=== PATIENT | male | born 1970 | race Caucasian/White ===

== ENCOUNTER 2019-12-20 04:36 | Inpatient (IN) | payer BC ==
--- NOTE | 2019-12-11 15:20 | HP ---
DATE OF OPERATION: 12/20/2019 BRIEF HISTORY: This is a 49-year-old gentleman who has a history of having a left inguinal hernia. He was told this by his primary care physician on his routine physical examination in June. At that time the patient has had no symptoms and was fine. The past 2 weeks the patient developed discomfort in the left groin and he noticed a large lump in the left groin as well. The patient states the lump comes and goes and usually comes out when he stands up. He has had no nausea and no vomiting or change in bowel habits. PAST MEDICAL HISTORY: No coronary disease, hypertension, or diabetes. PAST SURGICAL HISTORY: Patient has had an emergent laparoscopic cholecystectomy in 2010. ALLERGIES: ERYTHROMYCIN. MEDICATIONS: 1. Buspirone. 2. Acetaminophen. 3. Ibuprofen. 4. Naprosyn. 5. Aspirin. SOCIAL HISTORY: Does not smoke, does not drink, and no history of drug use. PHYSICAL EXAMINATION: Abdomen is soft, nontender, and nondistended. He has some laxity in the right groin. The right scrotum and testicle is within normal limits. On the left side the patient is noted to have a large left inguinal hernia with encroachment into the left proximal scrotum. The left testicle and scrotum is within normal limits as well. The hernia is partially reducible in the supine position. IMPRESSION/PLAN: Chronically incarcerated left inguinal scrotal hernia. This is a 49-year-old gentleman with a very large left inguinal hernia. At this point he is symptomatic and; therefore, I have recommended we repair the hernia. I have discussed the various surgical approaches with this gentleman with and without mesh. The patient will be scheduled for an attempt at a laparoscopic left inguinal herniorrhaphy with mesh and at the time of laparoscopy the right side will be examined and if an occult hernia is noted, it will be repaired at the same setting. If no hernia is seen, a piece of mesh will be left in the direct inguinal space for reinforcement. Due to the size of this hernia, the patient understands very clearly that he may develop a postoperative seroma which may or may not resolve. He understands this and still wants to proceed. The indications, alternatives, and complications of the procedure were discussed and questions answered. We will plan to obtain written consent the day of surgery. SAHRA TREVINO M.D. [id number] cc: Dr. Payam Darby III. [phone]
[2019-12-15 16:55] VITALS: BMI 20.7
[2019-12-20] MEDS ORDERED: TAMSULOSIN HCL 0.4 MG CAP ONE (07:27)
[2019-12-20] MEDS ORDERED: DEXAMETHASONE SOD PHOSPHATE/PF 10 MG/ML SDV ONE (08:36)
[2019-12-20] MEDS ORDERED: MIDAZOLAM HCL 2 MG/2 ML SINGLE DOSE VIAL ONE ×2 (08:38)
[2019-12-20] MEDS ORDERED: ROCURONIUM BROMIDE 100 MG/10 ML VIAL ONE (09:11)
[2019-12-20] MEDS ORDERED: PROPOFOL 20 ML ONE (09:11)
[2019-12-20] MEDS ORDERED: LIDOCAINE HCL/PF 2% SDV 5ML VIAL ONE (09:11)
[2019-12-20] MEDS ORDERED: KETOROLAC TROMETHAMINE 30 MG/1 ML VIAL ONE (09:16)
[2019-12-20] MEDS ORDERED: DEXAMETHASONE SOD PHOSPHATE 4 MG/1 ML VIAL ONE (10:06)
[2019-12-20] MEDS ORDERED: ceFAZolin SODIUM 1 GM VIAL ONE (10:06)
[2019-12-20] MEDS ORDERED: NEOSTIGMINE METHYLSULFATE 0.5 MG/ML - 10 ML MDV ONE (10:41)
[2019-12-20] MEDS ORDERED: GLYCOPYRROLATE 0.2 MG/1 ML VIAL ONE (10:41)
[2019-12-20] MEDS ORDERED: oxyCODONE HCL 5 MG TABLET PO PRN (11:31)
[2019-12-20] MEDS ORDERED: ONDANSETRON 4 MG/2 ML VIAL IVPUSH PRN (11:31)
[2019-12-20] MEDS ORDERED: ACETAMINOPHEN INJECTION 100 ML IVPB ONE (12:19)
[2019-12-20] MEDS ORDERED: ACETAMINOPHEN 1000 MG/100 ML VIAL (NON FORMULARY) IVPB ONE (12:30)
--- NOTE | 2019-12-20 13:00 | OP ---
DATE OF OPERATION: 12/20/2019 PREOPERATIVE DIAGNOSIS: Chronically incarcerated left inguinal hernia. POSTOPERATIVE DIAGNOSIS: Chronically incarcerated left inguinal hernia, chronically incarcerated left pantaloon inguinal hernia, right indirect inguinal hernia. PROCEDURE: Laparoscopic repair of incarcerated left inguinal hernia with mesh, laparoscopic repair of right inguinal hernia with mesh. SURGEON: Asad Feliciano MD TAPEMAN: Cedric Hansen MD ANESTHESIA: VITO Aleman (general). ESTIMATED BLOOD LOSS: Minimal. SPECIMEN: None. INDICATION FOR PROCEDURE: This is a 49-year-old gentleman becoming more symptomatic from his known chronically incarcerated left inguinal hernia. He now wishes to have this repaired. DESCRIPTION OF PROCEDURE: Patient identified and appropriately positioned on the operating room table. After placement of general anesthesia, the abdomen was prepped and draped in the usual sterile fashion with ChloraPrep. An infraumbilical incision was made, deepened through the subcutaneous tissues. The fascia of the rectus muscle on the right identified, divided sharply and the muscle split. Under direct vision a dissector balloon followed by a structural balloon placed. Also under direct vision a suprapubic 11-mm port placed. The following structures on the right side identified: Pubic tubercle, Jelani's ligament, inferior epigastric vessels, spermatic cord and lateral abdominal wall. During this dissection he had no direct component. He had an indirect inguinal hernia sac identified, reduced back into the preperitoneal space with blunt dissection. A 5.5 x 6 piece of Versatex mesh was jay-holed, placed through the suprapubic port site. The mesh was wrapped around the cord structures laterally to reconstruct the internal ring. Laterally the mesh was anchored to the anterior abdominal wall and lateral abdominal wall. Medially the mesh was anchored to the anterior abdominal wall, pubic tubercle and Jelani's ligament. Upon completion of the right side, similar structures on the left side identified. On the left side he had a chronically incarcerated direct inguinal hernia containing fat. He also had a small indirect inguinal hernia. The fat was reduced back into the preperitoneal space. The indirect hernia reduced back into the preperitoneal space. Another 5.5 x 6 piece of Versatex mesh was jay-holed, placed through the suprapubic port site. The mesh wrapped around the cord structures laterally to reconstruct the internal ring. Laterally the mesh was anchored to the anterior abdominal wall and lateral abdominal wall. Medially the mesh well overlapped in the midline, anchored to the anterior abdominal wall, pubic tubercle and Jelani's ligament. All anterior abdominal wall and lateral abdominal wall anchors placed under direct counter palpation. The mesh used was Versatex and the anchoring system was AbsorbaTack. The preperitoneal space desufflated under direct vision. The operative field noted to be hemostatic. The fascia at the infraumbilical and supraumbilical port site reapproximated with 3-0 Vicryl suture. All skin closed with 4-0 subcuticular Biosyn followed by Dermabond. At the conclusion of this case, sponge counts were correct. ATTESTATION: Brief op note handwritten on the preprinted form. [facility] queried prior to giving narcotics. Felipa CARRASQUILLO [id number] cc: Payam Vega III, DO
[2019-12-20] MEDS ORDERED: METOPROLOL TARTRATE 5 MG/5 ML VIAL ONE ×2 (13:32)
--- NOTE | 2019-12-20 15:17 | EKG ---
Test Reason : Blood Pressure : / mmHG Vent. Rate : 136 BPM Atrial Rate : 136 BPM P-R Int : 138 ms QRS Dur : 094 ms QT Int : 328 ms P-R-T Axes : 000 085 -34 degrees QTc Int : 493 ms ATRIAL TACHYCARDIA NONSPECIFIC ST ABNORMALITY ABNORMAL QRS-T ANGLE, CONSIDER PRIMARY T WAVE ABNORMALITY ABNORMAL ECG NO PREVIOUS ECGS AVAILABLE Confirmed by Claudio Viveros ([id number]) on 12/20/2019 3:16:30 PM Referred By: Confirmed By:Claudio Viveros
--- NOTE | 2019-12-20 15:36 | CON.CARD ---
Consult Consult Specialty:: Cardiology - History of Present Illness Chief Complaint: Tachycardia History of Present Illness: 49 M with ho anxiety on Wellbutrin and intermittent palpitations underwent elective laproscopic inguinal hernia repair under general anesthesia. Procedure was uncomplicated but noted to have sustained narrow complex tachycardia to 140s in PACU. He has palpitations but no dyspnea or chest pain. Viatals in PACU show O2 sat on RA 100%, BP 110/70. surgical site Pain is controlled. He has received 2 L fluids. There is no history of CHF or known prior ho CAD, or arrhythmias. An echocardiogram 2013 showed bileaflet prolapse and mild MR with normal biventric ular function. - History Source History Provided By: Patient - Smoking History Smoking history: Never smoked Have you smoked in the past 12 months: No Home Medications - Allergies Allergies/Adverse Reactions: Allergies Allergy/AdvReac Type Severity Reaction Status Date / Time erythromycin base Allergy Mild Nausea Verified 12/20/19 07:18 - Home Medications Home Medications: Ambulatory Orders Bupropion HCl [Wellbutrin Sr] 100 mg PO DAILY 12/15/19 Bupropion HCl [Wellbutrin Sr] 150 mg PO BID 12/15/19 Oxycodone HCl/Acetaminophen [Percocet 5-325 mg Tablet] 1 tab PO Q4H PRN #42 tablet MDD 6 12/20/19 Review of Systems - Review of Systems Constitutional: reports: No Symptoms Eyes: reports: No Symptoms HENT: reports: No Symptoms Neck: reports: No Symptoms Cardiovascular: reports: Palpitations. denies: Chest Pain, Shortness of Breath Respiratory: reports: No Symptoms Gastrointestinal: reports: No Symptoms Genitourinary: reports: No Symptoms Vital Signs: Vital Signs Temperature 98.0 F 12/20/19 11:01 Pulse Rate 131 H 12/20/19 11:01 Respiratory Rate 14 12/20/19 11:01 Blood Pressure 114/79 12/20/19 11:01 O2 Sat by Pulse Oximetry (%) 100 12/20/19 11:01 Constitutional: Yes: Well Nourished, No Distress Eyes: Yes: Conjunctiva Clear, EOM Intact HENT: Yes: Atraumatic, Normocephalic Neck: Yes: Supple, Trachea Midline Respiratory: Yes: Regular, CTA Bilaterally Gastrointestinal: Yes: Normal Bowel Sounds Renal/: Yes: WNL Cardiovascular: Yes: Regular Rate and Rhythm JVD: No Carotid Bruit: No PMI: Non-Displaced Heart Sounds: Yes: S1, S2 Murmur: No: Systolic Murmur, Diastolic Murmur Edema: No - Other Data Likely Atrial tachycardia No ST T changes. Problem List - Problems (1) Atrial tachycardia Code(s): I47.1 - SUPRAVENTRICULAR TACHYCARDIA Assessment/Plan 49 M history of MV prolapse and anxiety sp elective Laproscopic Hernia op with post op tachycardia. ECG with possible Atrial tachycardia (likely originating in [place]). Patient is mildly symptomatic with ho normal LV function. Arrhythmia possibly represents increased automaticity post OR/anesthesia. He has a ho palpitations and possibly has paroxysmal AT which is newly diagnosed. Echo Metoprolol 25mg PO BID. Check CXR/CBC/ K, Mg, phos. Correct electrolytes if needed. Check TFT Telemetry montior. If AT persists in the next 12-18 hours will advise electrophysiologic evaluation and transfer to tertiary hospital for cardioversion.
[2019-12-20] MEDS: LACTATED RINGERS SOLUTION 1,000 ML IV SCH (16:00)
--- NOTE | 2019-12-20 16:43 | ECHO ---
Version: 1 Name: JODI BERNAL Exam: Adult Echocardiogram Study Date: 12/20/2019, 4:04 PM Age: 49 Years MMode/2D Measurements & Calculations IVSd: 0.99 cm LVIDs: 2.9 cm LVIDd: 4.3 cm LVPWd: 0.87 cm ACS: 2.01 cm Ao root diam: 3.3 cm LVOT diam: 1.96 cm LA dimension: 3.1 cm Doppler Measurements & Calculations MV E max michael: 102.7 cm/sec Med E/e': 12.8 MV A max michael: 58.7 cm/sec Med Peak E' Michael: 8.0 cm/sec MV E/A: 1.75 Lat E/e': 16.5 Lat Peak E' Michael: 6.2 cm/sec Ao max P.8 mmHg CARLEEN(I,D): 2.7 cm Ao mean P.23 mmHg LV V1 mean: 39.8 cm/sec Ao V2 max: 84.2 cm/sec LV V1 mean P.72 mmHg Procedure A complete two-dimensional transthoracic echocardiogram was performed (2D, M-mode, Doppler and color flow Doppler). The patient was in a tachycardic rhythm during the exam. Left Ventricle The left ventricular size, thickness and function are normal. Right Ventricle The right ventricle is normal in size and function. Atria Normal left and right atrial size and function. Mitral Valve Prolapse of the anterior mitral leaflet. There is mild mitral regurgitation. Tricuspid Valve The tricuspid valve is normal in structure and function. Aortic Valve The aortic valve is normal in structure and function. The aortic valve is trileaflet. No hemodynamic ally significant valvular aortic stenosis. No aortic regurgitation is present. Pulmonic Valve The pulmonic valve is not well visualized. Great Vessels The aortic root is normal size. Pericardium/Pleura There is no pericardial effusion. Summary Statements The left ventricular size, thickness and function are normal The right ventricle is normal in size and function. Normal left and right atrial size and function. Prolapse of the anterior mitral leaflet. There is mild mitral regurgitation. Claudio Viveros 12/20/2019, 4:43 PM Ordering Physician: Claudio Viveros Referring Physician: CLAUDIO VIVEROS Performed By: Chasity Ray
[2019-12-20] MEDS ORDERED: buPROPion HCL 75 MG TABLET PO ONE (21:15)
[2019-12-20] MEDS: METOPROLOL TARTRATE 25 MG TABLET (FP) PO SCH (21:22)
[2019-12-21 07:41] VITALS: BP 102/59; PULSE 137; TEMP 97.9
[2019-12-21] MEDS: METOPROLOL TARTRATE 25 MG TABLET (FP) PO SCH (09:11)
--- NOTE | 2019-12-21 10:06 | DS ---
DATE OF ADMISSION: 12/20/2019 DATE OF DISCHARGE: 12/21/2019 HOSPITAL COURSE: This is a 49-year-old male who presented for a laparoscopic inguinal hernia repair. He had an uneventful bilateral inguinal hernia repair done by Dr. Asad Feliciano. Please reference the operative report. Postoperatively, he developed an atrial tachycardia. He was evaluated by the Cardiology Service, Dr. Claudio Viveros. He had an echocardiogram, and a decision was made that he needed to be transferred to [facility] for an electrophysiology cardiology evaluation and likely cardioversion. At the time of his transfer, he is stable. He has no pain. His blood pressure is fine. He is tolerating diet. Ambulating and voiding. He will be transferred to [facility] under Dr. Viveros's care. They will delay the procedure until December 21, which will be 48 hours after surgery, at which point he can start safely his anticoagulation. It is felt that there is a minimal risk to allowing him to wait an additional day with the tachycardia as he is hemodynamically stable. Obviously, if his condition changes, anticoagulation could be started sooner. He will follow with Dr. 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 DO MARCO HERNANDEZ/[id number]
--- NOTE | 2019-12-21 10:15 | PN ---
Progress Note, Physician Chief Complaint: Remians in AT HR 140. Palpitations noted by pt. no dyspnea. Echo showed normal LV function - Current Medication List Current Medications: Active Medications Bupropion HCl (Wellbutrin Xl -) 150 mg PO BID [facility] Last Admin: 12/21/19 09:49 Dose: 150 mg Documented by: Bupropion HCl (Wellbutrin -) 100 mg PO DAILY [facility] Lactated Ringer's (Lactated Ringers Solution) 1,000 mls @ 125 mls/hr IV ASDIR [facility] Last Admin: 12/20/19 16:00 Dose: 125 mls/hr Documented by: Metoprolol Tartrate (Lopressor -) 25 mg PO BID [facility] Last Admin: 12/21/19 09:11 Dose: 25 mg Documented by: Ondansetron HCl (Zofran Injection) 4 mg IVPUSH Q6H PRN PRN Reason: NAUSEA AND/OR VOMITING Oxycodone HCl (Roxicodone -) 5 mg PO Q4H PRN PRN Reason: PAIN LEVEL 1-5 - Objective Vital Signs: Vital Signs Temperature 97.9 F 12/21/19 06:40 Pulse Rate 137 H 12/21/19 06:40 Respiratory Rate 20 12/21/19 06:40 Blood Pressure 102/59 L 12/21/19 06:40 O2 Sat by Pulse Oximetry (%) 99 12/21/19 08:12 Constitutional: Yes: Well Nourished, No Distress Eyes: Yes: Conjunctiva Clear HENT: Yes: Atraumatic, Normocephalic Neck: Yes: Supple, Trachea Midline Cardiovascular: Yes: Tachycardia, S1, S2. No: Murmur Respiratory: Yes: CTA Bilaterally Gastrointestinal: Yes: Normal Bowel Sounds Edema: No Problem List - Problems (1) Atrial tachycardia Code(s): I47.1 - SUPRAVENTRICULAR TACHYCARDIA Assessment/Plan 49 M history of MV prolapse and anxiety sp elective Laproscopic Hernia op with post op tachycardia started 12/19. ECG with Atrial tachycardia (likely originating in [place]). Patient is mildly symptomatic with ho normal LV function. Arrhythmia possibly represents increased automaticity post OR/anesthesia. He has a ho palpitations and possibly has paroxysmal AT which is newly diagnosed. Echo showed normal LV function MVP with mild MR. Metoprolol 25mg PO BID. Check CXR/CBC/ K, Mg, phos. Correct electrolytes if needed. Check TFT COVID negative few days ago Transfer to [facility] for EP eval and cardioversion. Discussed with Surgeon if AC is indicated, start 12/21.
[2019-12-21] MEDS ORDERED: buPROPion HCL 100 MG TABLET PO SCH (12:00)
[2019-12-21] MEDS: LACTATED RINGERS SOLUTION 1,000 ML IV SCH (12:18)
--- NOTE | 2019-12-25 09:22 | EKG ---
Test Reason : Blood Pressure : / mmHG Vent. Rate : 136 BPM Atrial Rate : 136 BPM P-R Int : 146 ms QRS Dur : 088 ms QT Int : 344 ms P-R-T Axes : 000 078 -11 degrees QTc Int : 517 ms SINUS TACHYCARDIA vs ectopic atrial tachycardia NONSPECIFIC ST ABNORMALITY ABNORMAL ECG WHEN COMPARED WITH ECG OF 20-DEC-2019 13:36, No significant changes Confirmed by Javier Paulino ([id number]) on 12/25/2019 9:21:56 AM Referred By: Confirmed By:Javier Paulino
== END 2019-12-21 12:30 | disposition short-term general hospital (02) | DRG 982 ==
LOC: JASU-SURG 04:36 → J2C 13:37 → J4W 15:51
PROVIDERS: ADMIT Surgery; ATTEND Surgery
PROC: 0YUA4JZ Supplement Bilateral Inguinal Region with Synthetic Substitute, Percutaneous Endoscopic Approach (ICD-10-PCS; principal; 2019-12-20 10:14)
DX: I97.191 Other postprocedural cardiac functional disturbances following other surgery (principal); I47.1 Supraventricular tachycardia; K40.30 Unilateral inguinal hernia, with obstruction, without gangrene, not specified as recurrent; F41.9 Anxiety disorder, unspecified; K40.90 Unilateral inguinal hernia, without obstruction or gangrene, not specified as recurrent; Y83.8 Other surgical procedures as the cause of abnormal reaction of the patient, or of later complication, without mention of misadventure at the time of the procedure; I34.1 Nonrheumatic mitral (valve) prolapse
CPT/HCPCS: 71045-TC-FY; 86850; 86900; 86901; 93005; 93010; 93306-TC; 94760; J0131